=== PATIENT | female | born 1960 | race Caucasian/White ===

== ENCOUNTER 2020-07-07 11:10 | Outpatient (CLI) | payer BC, SELFPAY ==
--- NOTE | ~2020-07-07 | XR_ITS ---
EXAMINATION: XR lumbar spine 2-3V EXAM DATE: 07/07/2020 11:38 INDICATION: Neuropathy, low back pain. TECHNIQUE: Lumber spine frontal, lateral, lateral L5-S1 projections for interpretation. There is no prior study for comparison. FINDINGS: There is a right-sided common iliac arterial stent. Mild to moderate loss of the L3-4 disc height, mild loss at the other discs. There is moderate mid and lower lumbar facet arthropathy. The vertebral bodies are aligned in the AP dimension. Sacrum, sacroiliac joints, sacral arcuate lines are intact. No lumbar scoliosis. IMPRESSION: [id number] lumbar spondylosis. Reviewed, dictated and finalized at location A. IMPRESSION: [id number] lumbar spondylosis.
== END 2020-07-07 11:11 | disposition home or self-care (01) ==
PROVIDERS: PCP Internal Medicine Gastroenterology; Visit Provider Podiatrist Foot & Ankle Surgery
DX: G60.8 Other hereditary and idiopathic neuropathies (principal); M47.896 Other spondylosis, lumbar region
CPT/HCPCS: 72100

== ENCOUNTER 2022-12-22 08:11 | Outpatient (CLI) | payer OTHER, SELFPAY ==
--- NOTE | ~2022-12-22 | MM_ITS ---
EXAMINATION: MM screening tyrone BI w devon HISTORY: Screening mammogram TECHNIQUE: Craniocaudal and mediolateral oblique 3-D tomosynthesis images were obtained and synthetic 2-D images were generated. CAD analysis was submitted and interpreted. COMPARISON: No prior mammogram is available for comparison at this institution. BREAST PARENCHYMAL COMPOSITION: There are scattered areas of fibroglandular density. FINDINGS: Scattered bilateral occasional benign calcifications. There is no evidence of suspicious ma ss, calcification, or architectural distortion to suggest malignancy in either breast. There has been no suspicious interval change. IMPRESSION: 1. No mammographic evidence of malignancy. 2. Recommend routine screening mammography in one year. BI-RADS Category 2: Benign finding(s). Reviewed, dictated and finalized at location A.
== END 2022-12-22 08:12 | disposition home or self-care (01) ==
LOC: ANHIMG 08:13
PROVIDERS: PCP Internal Medicine Gastroenterology; Visit Provider Student in an Organized Health Care Education/Training Program
DX: Z12.31 Encounter for screening mammogram for malignant neoplasm of breast (principal)
CPT/HCPCS: 77063; 77067

== ENCOUNTER 2024-11-18 11:46 | Outpatient (CLI) | payer MEDICARE, MEDICAID, SELFPAY ==
--- NOTE | ~2024-11-18 | MM_ITS ---
EXAMINATION: MM screening tyrone BI w devon HISTORY: Screening TECHNIQUE: Craniocaudal and mediolateral oblique 3-D tomosynthesis images were obtained and synthetic 2-D images were generated. CAD analysis was submitted and interpreted. COMPARISON: 12/22/2022 BREAST PARENCHYMAL COMPOSITION: Not dense: There are scattered areas of fibroglandular density. FINDINGS: Punctate bilateral breast calcifications are stable. No new masses, calcifications or archi tectural distortion in either breast to suggest malignancy. IMPRESSION: 1. No mammographic evidence of malignancy. 2. Recommend routine screening mammography in one year. BI-RADS Category 2: Benign finding(s). Reviewed, dictated and finalized at location B.
--- OUTSIDE RECORDS SUMMARY | 2024-11-18 12:00 | XMS_ITS | Clinical Summary ---
Author Organization [facility] Address [address] [place] [address] Care Team Providers Care Teacher'S Aide Name Role Phone Marla Jerez MD Primary Care Provider [phone] Source Comments [facility],non-owned Affiliates and Associated Physician Practices is amultiple site organization consisting of ambulatory clinics and hospital sitesin [place], [place], [place] and [place]. This disclosure is being madepursuant to the Care Everywhere program and may not contain all information available regarding this patient. Last updated 18.[facility] Allergies No known active allergies Medications * Be aware that medications may not be up to date on this document. Alwaysverify current medications with the patient. multivitamin daily tablet Take 1 (one) tablet by mouth daily with food Active Aspirin 81 MG CAPS Take 1 capsule every day by oral route. Active cilostazol (Pletal) 100 MG tablet Take 1 (one) tablet by mouth 2 times daily 02/10/2023 Active clopidogrel (plaVIX) 75 MG tablet Take 1 (one) tablet by mouth once daily Active gabapentin (Neurontin) 100 MG capsule Take 1 (one) capsule by mouth 3 times daily Active rosuvastatin (Crestor) 5 MG tablet Take 1 (one) tablet by mouth once daily 02/21/2022 Active Cholecalciferol (Vitamin D-3) 125 MCG (5000 UT) Active Active Problems Problem Noted Date Diagnosed Date Tobacco user 10/15/2024 Intermittent claudication 02/20/20232022 Dyspnea on exertion 02/20/2023 02/20/2023 Osteoarthrosis 01/22/2023 Overview (10/15/2024): Multiple joints Numbness 08/29/2022 Overview (10/15/2024): LE/UE Leg pain, bilateral 08/14/2021 02/20/2023 Temporomandibular joint disorder 06/26/2021 Overview (10/15/2024): Right Paresthesia of lower extremity 06/08/2020 Chest pain 05/05/2020 Inflammation of joint of both hands 08/21/2018 02/20/2023 Raynaud phenomenon 08/21/2018 02/20/2023 Fatigue 08/12/2017 02/20/2023 Former heavy tobacco smoker 07/02/201604/2022 Peripheral vascular disease 06/29/201104/2022 Encounters Date Type Department Care Team Description 10/15/2024 9:45 AM CDT Office Visit [facility] - REGISTERED RESPIRATORY THERAPIST [address] [facility] [address] [place] [address] Scott Darnell Che, MD Midline cystocele (Primary Dx); Rectocele; Perineocele; Incomplete uterovaginal prolapse 10/15/2024 Travel from Last 3 Months Family History Medical History Relation Name Comments CAD (Coronary Artery Disease) Father Depression Mother Osteoporosis Mother Relation Name Status Comments Father Mother Social History Tobacco Use Types Packs/Day Years Used Date Smoking Tobacco: Former Cigarettes 0.5 15 Smokeless Tobacco: Never Tobacco Cessation:Counseling Given: Not Answered Alcohol Use Standard Drinks/Week Comments Yes 2 (1 standard drink = 0.6 oz pur e alcohol) 3/week PHQ-2 Answer Date Recorded Patient Health Questionnaire-2 Score 0 10/15/2024 Comments No Sex and Gender Information Value Date Recorded Sex Assigned at Not on file Legal Sex Female 10:22 AM CDT Gender Identity Not on file Sexual Orientation Not on file Last Filed Vital Signs Vital Sign Reading Time Taken Comments Blood Pressure 126/70 10/15/2024 9:31 AM CDT Pulse 84 05/06/2020 3:16 PM SCHOOL BUS OPERATOR Temperature 35.9 C (96.6 F) 12/11/2023 1:55 PM CDT Respiratory Rate 18 05/06/2020 3:16 PM SCHOOL BUS OPERATOR Oxygen Saturation 91% 05/06/2020 3:16 PM SCHOOL BUS OPERATOR Inhaled Oxygen Concentration - - Weight 55.6 kg (122 lb 9.6 oz) 10/15/2024 9:31 A M CDT Height 162.6 cm (5' 4) 10/15/2024 9:31 AM CDT Body Mass Index 21.04 10/15/2024 9:31 AM CDT Plan of Treatment Upcoming Encounters Date Type Department Care Team (Late st Contact Info) Description 02/16/2025 11:30 AM CDT Office Visit [facility] - REGISTERED RESPIRATORY THERAPIST [address], [facility] [address] [place] [address] Scott Darnell Che, MD [address] [facility] [address] [place] [address] Health Maintenance Due Date Last Done Comments BONE DENSITY TESTING 1960 COLON MONITORING 1959 COLONOSCOPY - COLON CA SCREENING 1959 CT COLONOGRAPHY - COLON CA SCREENING 1959 FIT - COLON CA SCREENING 1959 FLEX SIG - COLON CA SCREENING 1960 MAMMOGRAM 1960 MEDICARE AWV 12 MONTHS 1959 DTAP/TDAP/TD VACCINES (1 - Tdap) 1978 PAP SMEAR 02/07/1980 PNEUMOCOCCAL VACCINE 50+ (1 of 1 - PCV) 2009 ZOSTER VACCINE (1 of 2) 2009 Respiratory Syncytial Virus (RSV) Vaccine Pt: or over 60 yrs (1 - Risk 60-74 years 1-dose series) 2019 COVID-19 VACCINE (3 - 2023-2 5 season) 2023 12/01/2020, 11/10/2020 INFLUENZA VACCINE (#1) 2024 COLOGUARD (AGES 45-75) - COL ON CA SCREENING 09/19/2025 09/19/2022 Colorectal Cancer Screening 09/19/2025 HEPATITIS C SCREENING Completed 05/05/2020 HIV SCREENING Completed 05/05/2020 DEPRESSION SCREENING Completed 05/28/2024, 08/08/2023, 02/20/2023 HEPATITIS B VACCINE Aged Out No longe r eligible based on patient's age to complete this topic HIB VACCINE Aged Out No longer eligi ble based on patient's age to complete this topic HPV VACCINE Aged Out No longer eligi ble based on patient's age to complete this topic MENINGOCOCCAL (Group B) VACCINE SHARED DECISION-MAKING Aged Out No longer eligible based on patient's age to complete this topic MENINGOCOCCAL GROUPS A/C/Y/W VACCINE Aged Out No longer eligible b ased on patient's age to complete this topic Procedures Procedure Name Priority Date/Time Associated Diagnosis Comments HEPATITIS C ANTIBODY STAT 05/05/2020 2:33 PM SCHOOL BUS OPERATOR HIV-1 HIV-2 ANTIBODY + HIV P24 AG PANEL STAT 05/05/2020 2:33 PM SCHOOL BUS OPERATOR from Last 3 Months or Most Recently Relevant to Health Maintenance Results * HIV-1 HIV-2 ANTIBODY + HIV P24 AG PANEL (05/05/2020 2:33 PM SCHOOL BUS OPERATOR) HIV1/2 Ab + P24 Ag Non Reactive Non Reactive 05/05/2020 3:37 PM SCHOOL BUS OPERATOR [facility] Blood BLOOD SPECIMEN / Unknown Venipuncture / Unknown 05/05/2020 2:33 PM SCHOOL BUS OPERATOR 05/05/2020 2:48 PM SCHOOL BUS OPERATOR Narrative [facility] - 05/05/2020 3:37 PM SCHOOL BUS OPERATOR No Laboratory evidence of HIV infection. us Seth Arevalo Ased DO LAB - CHEMISTRY ORDERABLES Final Result [facility] [address] [place] [address] * HEPATITIS C ANTIBODY (05/05/2020 2:33 PM SCHOOL BUS OPERATOR) HCV Antibody Screen Non Reactive Non Reactive 05/05/2020 3:38 PM SCHOOL BUS OPERATOR [facility] Blood BLOOD SPECIMEN / Unknown Venipuncture / Unknown 05/05/2020 2:33 PM SCHOOL BUS OPERATOR 05/05/2020 2:48 PM SCHOOL BUS OPERATOR Narrative [facility] - 05/05/2020 3:38 PM SCHOOL BUS OPERATOR Non Reactive - Antibodies to Hepatitis C virus (HCV) were not detected, result does not exclude early acute HCV infection. us Sugilma Araujo DO LAB - CHEMISTRY ORDERABLES Final Result [facility] [address] [place] [address] from Last 3 Months or Most Recently Relevant to Health Maintenance Insurance MEDICAID - [place] MEDICARE * Guarantor: LEONOR DOMINGUEZ Account Type Relation to Patient Date of Phone Billing Address Personal/Family 1960 [address] [place] [address] Advance Directives * Full Code (Latest Code Status on File) Date Activated Date Inactivated Comments 05/05/2020 10:25 PM 05/06/2020 5:57 PM * Full Code Date Activated Date Inactivated Comments 05/05/2020 7:48 PM 05/05/2020 10:25 PM Care Teams Teacher'S Aide Relationship Specialty Start Date End Date Marla Jerez MD [address] [place] [address] PCP - General Gastroenterology 09/28/15
--- OUTSIDE RECORDS SUMMARY | 2024-11-18 12:00 | XMS_ITS | Clinical Summary ---
Author Organization [facility] Address [address] [place] [address] Care Team Providers Care Respiratory Assistant Name Role Phone Marla Jerez MD Primary Care Provider Unavail able Medications clopidogrel (PLAVIX) 75 MG tabletIndication s:PAD (peripheral artery disease) Take 1 tablet (75 mg total) by mouth daily. 30 tablet 05/30/2020 Active HYDROcodone-acet aminophen 5-325 MG tabletIndication s:Acute Pain < 7 Day Supply Take 1 tablet by mouth every 6 (six) hours as needed. Indications : Acute Pain < 7 Day Supply 15 tablet 05/30/2020 Active Social History Tobacco Use Types Packs/Day Years Used Date Smoking Tobacco: Every Day Cigarettes Comments No Sex and Gender Information Value Date Recorded Sex Assigned at Not on file Legal Sex Female 8:11 PM CDT Gender Identity Not on file Sexual Orientation Not on file Last Filed Vital Signs Vital Sign Reading Time Taken Comments Blood Pressure 161/75 05/30/2020 12:40 PM SECURITY TEAM LEAD Pulse 90 05/30/2020 12:40 PM SECURITY TEAM LEAD Temperature 36.6 C (97.8 F) 05/30/2020 12:40 PM SECURITY TEAM LEAD Respiratory Rate 12 05/30/2020 12:40 PM SECURITY TEAM LEAD Oxygen Saturation 94% 05/30/2020 12:40 PM SECURITY TEAM LEAD Inhaled Oxygen Concentration - - Weight 63.5 kg (140 lb) 05/30/2020 12:40 PM SECURITY TEAM LEAD Height 165.1 cm (5' 5) 05/30/2020 12:40 PM SECURITY TEAM LEAD Body Mass Index 23.3 05/30/2020 12:40 PM SECURITY TEAM LEAD Plan of Treatment Health Maintenance Due Date Last Done Comments Colorectal Cancer Screening Colonoscopy (10 Years) 1960 DTaP, Tdap and Td Vaccines ( 1 - Tdap) 1978 Pneumococcal Vaccine: 50+ Ye ars (1 of 2 - PCV) 1978 Mammogram Screening 1999 Zoster Vaccines (1 of 2) 2009 COVID-19 Vaccine (1 - 2023-2 5 season) 2023 Dexa Scan (General) 02/07/2024 RSV Immunization or 60+ Years (1 - 1-dose 75+ series) 2034 Hepatitis C Completed 05/05/2020 Meningococcal B Vaccine Aged Out No l onger eligible based on patient's age to complete this topic Meningococcal Vaccine Aged Out No zaire elida eligible based on patient's age to complete this topic RSV Immunizations Under 20 Months Aged Out No longer eligible based on patient's age to complete this topic Insurance Care Teams Respiratory Assistant Relationship Specialty Start Date End Date Marla Jerez MD PCP - General 11/04/15
== END 2024-11-18 11:47 | disposition home or self-care (01) ==
DX: Z12.31 Encounter for screening mammogram for malignant neoplasm of breast (principal)
CPT/HCPCS: 77063; 77067